=== PATIENT | male | born 1985 ===

== ENCOUNTER 2024-11-24 08:50 | Emergency (ER) | payer BC ==
[2024-11-24] MEDS ORDERED: Sodium Chloride 0.9% 10 ML Syringe FLUSH PRN (09:50)
[2024-11-24] MEDS: Ketorolac 30 MG/ML SDV IVPUSH ONE (10:11)
[2024-11-24] MEDS ORDERED: Naloxone 0.4 MG/ML SDV IVPUSH PRN (11:05)
[2024-11-24] MEDS: HYDROmorphone 1 MG/ML Syringe IVPUSH ONE (11:10)
[2024-11-24] MEDS: Ondansetron 4 MG/2 ML SDV IVPUSH ONE (11:10)
== END 2024-11-24 12:47 | disposition home or self-care (01) ==
LOC: MW.ED 08:50
DX: M51.16 Intervertebral disc disorders with radiculopathy, lumbar region (principal); Z79.899 Other long term (current) drug therapy
CPT/HCPCS: 72131; 72131-26; 96374; 96375; 99283; 99283-25; J1100; J1171; J1885; J2405